=== PATIENT | male | born 1980 | race Two or more races ===

== ENCOUNTER 2024-09-09 10:59 | Inpatient (IN) | payer OTHER ==
[~2024-09-09] VITALS: Ht 175.3 cm; Wt 85.9 kg
[2024-09-09 15:54] VITALS: PULSE 42; RESP 17; O2SAT 100
[2024-09-09 16:11] VITALS: BP 131/71; PULSE 42; RESP 16; TEMP 97.8; O2SAT 100
--- NOTE | 2024-09-09 16:48 | DVHSR ---
APPROVED REPORT EXAM: Two-dimensional and M-mode echocardiogram with Doppler and color Doppler. DIMENSIONS LVDd5.5 (3.8-5.7cm)LA (2D)3.8 (1.9-4.0cm)Aortic Root3.3 (2.0-3.7cm) LVDs3.7 (2.5-4.0cm)LA (MM) (1.9-4.0cm)Aortic Cusp Exc1.8 (1.5-2.0cm) EF (%) 60.0 (55-70%)Rt. Atrium4.5 (1.9-4.0cm)Asc. Aorta3.0 cm IVSd1.0 (0.7-1.1cm)RV (D) (1.8-2.4cm) PWd1.1 (0.7-1.1cm) Mitral Valve MitralMitral Stenosis E wave0.80m/sMV Mean GR.mmHg A wave0.60m/sMV Peak GR.mmHg E/A ratio1.32D MVAcm2 Aortic Valve Aortic ValveAortic Stenosis V11.10m/Nika Mean GR.3mmHg V21.20m/Nika Peak GR.6mmHg LVOT Diameter2.2 (1.8-2.4cm)Doppler AVA3.48cm2 Pulmonic Valve V20.50m/s Tricuspid Valve TR Velocity2.30m/s [id number] Conclusion Technically good study. Sinus rhythm. Mild left atrial enlargement. Aortic root enlargement. LV enlargement. Valves appear to be structurally normal. Left ventricular function is mildly diminished EF is about 40-45%. Underlying global hypokinesis. N ormal RV function. Doppler reveals moderate pulmonic insufficiency. [id number] tricuspid regurgitation. No pericardial effusion masses or vegetations discernible.
[2024-09-09 17:00] VITALS: BP 131/71; PULSE 42; RESP 14; TEMP 97.8; O2SAT 100
[2024-09-09] MEDS ORDERED: MORPHINE SULFATE INJ 2 MG/ml SYRG IV PRN (17:00)
[2024-09-09] MEDS ORDERED: NITROGLYCERIN 0.4 MG SL TAB SL PRN (17:00)
[2024-09-09 18:36] LABS: Basophils # (auto) 0 10 ^3/uL (0-0.2); Basophils % (auto) 0.7 % (0.0-2.0); Eosinophils # (auto) 0.1 10 ^3/uL (0-0.8); Eosinophils % (auto) 2.3 % (0.0-7.0); Hematocrit 45.2 % (41.0-53.0); Hemoglobin 15.1 g/dL (13.5-17.5); Lymphocytes % (auto) 33.1 % (10.0-50.0); Mean Corpuscular Hemoglobin 28.7 pg (28.0-32.0); Mean Corpuscular Hgb Conc. 33.4 g/dL (32.0-36.0); Mean Corpuscular Volume 85.8 fL (80.0-100.0); Monocytes # (auto) 0.6 10 ^3/uL (0-1.3); Monocytes % (auto) 10.5 % (0.0-12.0); Neutrophils # (auto) 3.3 10 ^3/uL (1.6-8.6); Neutrophils % (auto) 53.4 % (37.0-80.0); Nucleated Red Blood Cells % 0.1 %; Platelet Count (auto) 246 10^3/uL (140-450); Red Blood Cells 5.27 10^6/uL (4.5-5.90); Red Cell Distribution Width 14.4 % (11.8-14.3); White Blood Cell 6.1 10^3/uL (4.4-10.8)
[2024-09-09 18:48] LABS: Alanine Aminotransferase 34 U/L (7-40); Albumin 4.8 g/dL (3.2-4.8); Alkaline Phosphatase 68 U/L (46-116); Anion Gap 8 (5-15); Aspartate Aminotransferase 21 U/L (13-40); BUN/Creatinine Ratio 8.6 (10.0-20.0); Bilirubin, Total 0.6 mg/dL (0.2-1.0); Blood Urea Nitrogen 12 mg/dL (9-23); Calcium 10.3 mg/dL (8.7-10.4); Carbon Dioxide 30 mmol/L (20-31); Chloride 105 mmol/L (98-107); Glucose 92 mg/dL (74-106); Potassium 4.1 mmol/L (3.5-5.1); Sodium 143 mmol/L (136-145); Total Protein 7.7 g/dL (5.7-8.2)
--- NOTE | 2024-09-09 19:30 | DVH ---
CHEST RADIOGRAPH Indication: chest pain Technique: Single frontal view of the chest was obtained COMPARISON: None FINDINGS: Lines and Tubes: None Lungs: Clear Pleura: No effusion. No pneumothorax. Cardiomediastinal contours: Unremarkable Bones: Unremarkable IMPRESSION: No abnormality demonstrated.
--- NOTE | 2024-09-09 19:41 | DVHINCON2 ---
Date Seen: September 09, 2024 Referring Physician MD Adis Reason for Consultation Chest pain History of Present Illness This is a 43-year-old male patient who presents to the outpatient cardiac clinic for uncontrolled hypertension. The patient was evaluated by seafood farmer and subsequently admitted to this facility for further cardiac workup. Patient is currently incarcerated. The patient reports that he has been experiencing headaches with numbness in his bilateral arms and shoulders. He reports taking amlodipine, but blood pressures are still not well controlled. Initial twelve lead electrocardiogram done at time of assessment and reveals sinus bradycardia with left ventricular hypertrophy and nonspecific ST segment changes to inferior leads. He denies any chest pain, palpitations, or shortness of breath. Initial troponin level of 19ng/L. Significant past medical history includes hypertension and tobacco use. The patient reports a positive family history of coronary artery disease. Past Medical History Past medical history reviewed. No other significant than mentioned above. Past Surgical History Denies all previous surgeries Family History: FH: lupus G8 MOTHER Family History Family history reviewed. Social History Patient has a 30 pack-year history, smokes half a pack per day Denies any illicit drug use Denies any alcohol use Allergies: Coded Allergies: NO KNOWN ALLERGIES (Unverified , 09/09/24) Home Meds Home medications reviewed. Current Medications Current Medications Medications (Trade) Dose Ordered Sig/Agueda Route PRN Reason Start Time Stop Time Status Last Admin Nitroglycerin (Ntrostat Sublingual) 0.4 mg Q5MINP PRN SL FOR CHEST PAIN 09/09/24 17:00 Morphine Sulfate 2 mg Q30M PRN IV FOR CHEST PAIN 09/09/24 17:00 Review of Systems Constitutional: No symptom reported Ears, Nose, & Throat: No symptom reported Eyes: No symptom reported Neurological: Headache Pulmonary/Respiratory: No symptoms reported Cardiovascular: No symptom reported Gastrointestinal: No symptom reported Genitourinary: No symptom reported Musculoskeletal: No symptom reported Skin: No symptom reported Psychiatric: No symptom reported Endocrine: No symptom reported Hematologic/Lymphatic: No symptom reported Vital Signs Vital Signs Date Time Temp Pulse Resp B/P (MAP) Pulse Ox O2 Delivery O2 Flow Rate FiO2 09/09/24 17:00 97.8 42 14 131/71 (91) 100 97.8 09/09/24 15:54 Room Air* 0 21 Physical Exam General Appearance: Cooperative. Well-developed. Well-nourished. No acute distress. Pulmonary/Respiratory: Clear, bilateral breaths sounds. Cardiovascular/Chest: Regular rate and rhythm. Peripheral Pulses: 2+ Radial (R). 2+ Radial (L). 2+ Pedal (R). 2+ Pedal (L) Abdominal Exam: Normal bowel sounds. Ankle Exam: Negative ankle edema Lower extremities: Negative lower extremity edema Neuro/Mental Status: A/OX4, coherent. Thoughts/Psych: Normal thought pattern. Appropriate mood and affect. Good judgment and insight. Appearance: No acute distress. Skin Exam: Normal inspection. Normal color. Warm and dry. Labs/Diagnostic Data Labs Test 09/09/24 18:15 Range/Units White Blood Count 6.1 4.4-10.8 10^3/uL Red Blood Count 5.27 4.5-5.90 10^6/uL Hemoglobin 15.1 13.5-17.5 g/dL Hematocrit 45.2 41.0-53.0 % Mean Corpuscular Volume 85.8 80.0-100.0 fL Mean Corpuscular Hemoglobin 28.7 28.0-32.0 pg Mean Corpuscular Hemoglobin Concent 33.4 32.0-36.0 g/dL Red Cell Distribution Width 14.4 H 11.8-14.3 % Platelet Count 246 140-450 10^3/uL Mean Platelet Volume 7.9 6.9-10.8 fL Neutrophils (%) (Auto) 53.4 37.0-80.0 % Lymphocytes (%) (Auto) 33.1 10.0-50.0 % Monocytes (%) (Auto) 10.5 0.0-12.0 % Eosinophils (%) (Auto) 2.3 0.0-7.0 % Basophils (%) (Auto) 0.7 0.0-2.0 % Neutrophils # (Auto) 3.3 1.6-8.6 10 ^3/uL Lymphocytes # (Auto) 2.0 0.4-5.4 10 ^3/uL Monocytes # (Auto) 0.6 0-1.3 10 ^3/uL Eosinophils # (Auto) 0.1 0-0.8 10 ^3/uL Basophils # (Auto) 0 0-0.2 10 ^3/uL Nucleated Red Blood Cells 0.1 % Sodium Level 143 136-145 mmol/L Potassium Level 4.1 3.5-5.1 mmol/L Chloride Level 105 98-107 mmol/L Carbon Dioxide Level 30 20-31 mmol/L Anion Gap 8 5-15 Blood Urea Nitrogen 12 9-23 mg/dL Creatinine 1.39 H 0.700-1.30 mg/dL Glomerular Filtration Rate Calc 65 >90 mL/min BUN/Creatinine Ratio 8.6 L 10.0-20.0 Serum Glucose 92 74-106 mg/dL Calcium Level 10.3 8.7-10.4 mg/dL Total Bilirubin 0.6 0.2-1.0 mg/dL Aspartate Amino Transferase (AST) 21 13-40 U/L Alanine Aminotransferase (ALT) 34 7-40 U/L Alkaline Phosphatase 68 46-116 U/L Troponin I High Sensitivity 19 </=54 ng/L Total Protein 7.7 5.7-8.2 g/dL Albumin 4.8 3.2-4.8 g/dL Assessment Rule out coronary ischemia Uncontrolled hypertension Rule out structural heart disease Tobacco use Plan/Recommendation We will continue with the following plan/recommendations (Dr. Burr): Case discussed with . We will proceed with obtaining a transthoracic echocardiogram to evaluate cardiac function. Given the patient's clinical presentation, comorbidities, and twelve lead electrocardiogram, we will offer the patient a nuclear stress test. Plan discussed with the patient full detail. Patient agreeable. We will schedule the patient at soonest availability on 09/10/2024. In the meantime, continue with blood pressure control, and single antiplatelet therapy. Close Cardiac monitoring and notify cardiology team for any ECG changes. Thank you for allowing us to care for this patient. Please call with any questions or concerns. Critical care time spent: 43 minutes This medical document was created using an electronic medical record system with voice recognition software and computerized dictation system. Although this document has been carefully reviewed, there might still be some phonetic and typographical errors. Occasional wrong-word or ``sound-alike�� substitutions may have occurred due to the inherent limitations of voice recognition software. These areas are purely typographical due to imperfections of the software programs and do not reflect any compromise in the patient's medical care. Please read the chart carefully and recognize, using context, where these substitutions have occurred. Plan discussed with: Patient NYHA Physical activity limitations: NA Date of Service: September 09, 2024 Billing Provider: ALIRIO POWELL Cardiology Common Codes: 12022-USPGVCF INP/OBS CARE (High) Cardiology Consultation Codes: 33314-[id number] CONSULT <45MIN ALIRIO POWELL September 09, 2024 19:41
[2024-09-09 20:00] VITALS: PULSE 47; PULSE 50; RESP 18; O2SAT 98
[2024-09-09] MEDS ORDERED: HYDROcodone-ACET 10/325MG TAB PO PRN (20:15)
[2024-09-09 20:19] LABS: Magnesium 2.2 mg/dL (1.6-2.6)
[2024-09-09 21:00] VITALS: BP 121/73; PULSE 47; RESP 18; TEMP 98.3; O2SAT 98
--- NOTE | 2024-09-09 21:31 | DVHHP ---
ADMIT DATE: 09/09/2024 ADMITTING HISTORY AND PHYSICAL ATTENDING PHYSICIAN: Dr. Tim Arceo. CHIEF COMPLAINT: Bradycardia. HISTORY OF PRESENT ILLNESS: This is a 43-year-old male, [facility] inmate, who was seen in Cardiac Clinic today, referred by the BO for uncontrolled hypertension, but he was found to be bradycardic with a heart rate in the 40s. The patient states he has hypertension and takes amlodipine 5 mg per day. He adamantly denies any symptoms of lightheadedness, blurring of vision, chest pain, cough, shortness of breath, nor any recent fevers. Due to the nature of symptoms, the patient is being admitted for further workup. PAST MEDICAL HISTORY: Hypertension. PAST SURGICAL HISTORY: Denies. FAMILY HISTORY: Mother had lupus. SOCIAL HISTORY: He has had 30-pack years of smoking. The patient states he started when he was approximately [age] years old. Had occasional to moderate use of alcohol. He smoked marijuana on a regular basis. He is single. He has 5 children. Normally resides in [place]. He has been incarcerated for 4 years and has approximately 2 years left on his sentence. The patient states he works out regularly. He does cardio a couple of days a week and he plays basketball quite regularly, almost daily without any known untoward events. REVIEW OF SYSTEMS: HEENT: He denies any lightheadedness, loss of consciousness, blurring of vision. Cardiovascular: As per HPI. Respiratory: Denies cough, shortness of breath, or hemoptysis. GI: Denies nausea, vomiting, diarrhea, or constipation. : Noncontributory. Neuro: Denies any focal deficits. PHYSICAL EXAMINATION: VITAL SIGNS: He presents with a temperature of 97, blood pressure of 131/71, heart rate of 42, respiratory rate of 16, O2 saturation 100% on room air. HEENT: Normocephalic, anterior sclerae, pink conjunctiva. EOMI. NECK: Supple. No JVD, mass, or bruit. CHEST: Good equal excursion bilateral, nontender. HEART: S1, S2 regular. No click, murmur, or gallop. LUNGS: Good equal air exchange bilateral, clear to auscultation. ABDOMEN: Soft, benign. NEURO: He is awake, alert, and oriented x4. He is without any focal deficits. LABORATORY DATA: We have WBC of 6.1, hemoglobin 15.1, platelets 246. Chemistries are pending. Chest x-ray, no abnormality. Then, we have EKG, which shows sinus bradycardia at approximately 40 beats per minute. No obvious acute ST-T changes. ASSESSMENT: * Bradycardia. * Hypertension. PLAN: Admit to tele. Condition is stable. Regular diet. IV heplock. We will also do Lovenox for DVT prophylaxis. MD ALAN Rosales/AUTUMN TID: [id number] RECEIPT: [id number]
[2024-09-10] VITALS (7 sets, daily range): BP systolic 100–111; BP diastolic 57–74; PULSE 43–58; RESP 15–20; TEMP 97.4–98; O2SAT 96–98
[2024-09-10] MEDS: REGADENOSON 0.4 MG/5 ML SYRG IV ONE (08:00)
[2024-09-10] MEDS ORDERED: NIFEdipine ER 30 MG TAB PO SCH (10:00)
--- NOTE | 2024-09-10 10:42 | DVHPN2 ---
Consult Progress Note Date Seen: September 10, 2024 Subjective Review of Systems: CVS:Normal, RESPIRATORY:Normal, NEURO:Normal Objective vital signs Vital Sign Date Time Temp Pulse Resp B/P (MAP) Pulse Ox O2 Delivery O2 Flow Rate FiO2 09/10/24 09:01 97.9 47 20 107/63 (78) 97 97.9 09/10/24 08:00 Room Air* 0 21 Total Intake and Output 09/09/24 09/09/24 09/10/24 15:00 23:00 07:00 Intake Total 0 ml 0 ml Balance 0 ml 0 ml medications Current Medications Medications Dose Ordered Sig/Agueda Route Start Time Stop Time Status Last Admin Dose Admin Nitroglycerin 0.4 mg Q5MINP PRN SL 09/09/24 17:00 Aspirin 81 mg DAILY PO 09/10/24 10:00 Acetaminophen/ Hydrocodone Bitart 1 tab Q4HP PRN PO 09/09/24 20:15 Examination: LUNGS:Normal, CVS:Normal, NEURO:Normal laboratory and microbiology Laboratory Tests 09/09/24 18:15 Test 09/09/24 18:15 Range/Units Serum Glucose 92 74-106 mg/dL Problem List/Assessment/Plan Problem List/Assessment/Plan Hypertension Chronic compensated HFmrEF with LVEF at 40-45% Asymptomatic bradycardia Pre-diabetes Dyslipidemia Tobacco use Plan/Recommendation (Dr. Burr) Case discussed with . Transthoracic echocardiogram revealed LVEF 40-45% with underlying global hypokinesis. Nuclear stress test postponed for 09/12/2024 (nuclear medicine machine down). Plan discussed with the patient full detail. Patient agreeable. In the meantime, continue single-antiplatelet therapy and initiate GDMT for HFmrEF, hold BB given bradycardia. Close Cardiac monitoring and notify cardiology team for any ECG changes. Thank you for allowing us to care for this patient. Please call with any questions or concerns. This medical document was created using an electronic medical record system with voice recognition software and computerized dictation system. Although this document has been carefully reviewed, there might still be some phonetic and typographical errors. Occasional wrong-word or ``sound-alike�� substitutions may have occurred due to the inherent limitations of voice recognition software. These areas are purely typographical due to imperfections of the software programs and do not reflect any compromise in the patient's medical care. Please read the chart carefully and recognize, using context, where these substitutions have occurred. Plan discussed with: Patient, Other Date of Service: September 10, 2024 Billing Provider: GEM SILVA Cardiology Common Codes: 12283-[id number] INP/OBS CARE(Mod) GEM SILVA September 10, 2024 10:42
[2024-09-10] MEDS: ASPirin 81 mg TAB PO SCH (10:45)
--- NOTE | 2024-09-10 13:51 | ECG ---
[facility] Test Date: 2024-09-09 Test Time: 16:35:29 Pat Name: ALMAZ GUZMAN Department: Room: 0298T B Gender: M [employer] Machine: kaya : [id number] Requested By: LISA LEDESMA Order Number: [id number] Reading MD: Zechariah Burr Measurements Intervals [place] Rate: 42 P: -3 AR: 186 QRS: -34 QRSD: 108 T: -2 QT: 458 QTc: 383 Interpretive Statements Sinus bradycardia Abnormal R-wave progression, late transition Left ventricular hypertrophy Borderline T abnormalities, inferior leads Electronically Signed On 09-10-2024 15:31:49 PDT by Zechariah Burr Please click the below link to view image of tracing.
--- NOTE | 2024-09-10 16:16 | DVHPN ---
DATE: 09/10/2024 ATTENDING PHYSICIAN: Dr. Tim Arceo SUBJECTIVE: The patient is sitting up in bed. He is eating a sandwich. He is watching TV. He is comfortable. He is in no active distress. He denies any complaints. Specifically, he denies any lightheadedness, blurring of vision, chest pain, cough, shortness of breath, or fever. No untoward events have been noted. OBJECTIVE: VITAL SIGNS: Temperature is 97.9 with a blood pressure of 107/63, heart rate of 47, respiratory rate of 20, O2 saturation 97% on room air. HEART: S1, S2 regular. No click, murmur, or gallop. LUNGS: Good equal air exchange bilateral. Clear to auscultation. ABDOMEN: Soft, nondistended, nontender. Bowel sounds positive. No mass, guarding, or rebound. NEUROLOGIC: He is awake, alert, and oriented x4 without focal deficits. LABORATORY DATA: Troponin negative x2. TSH is 1.3. ASSESSMENT: * Bradycardia. * Hypertension. PLAN: We will continue with aspirin for cardio protection. Continue with [place] for pain, Jardiance for diabetes. The patient is scheduled for stress test. MD ALAN Rosales/CLIVE TID: [id number] RECEIPT: [id number]
[2024-09-11] VITALS (8 sets, daily range): BP systolic 101–119; BP diastolic 54–67; PULSE 50–74; RESP 14–18; TEMP 97.6–98.3; O2SAT 96–97
[2024-09-11] MEDS: VALSARTAN 80 MG TAB PO SCH (09:10)
[2024-09-11] MEDS: SPIRONOLACTONE 25 MG TAB PO SCH (09:12)
[2024-09-11] MEDS: EMPAGLIFLOZIN 10 MG TAB PO SCH (09:12)
--- NOTE | 2024-09-11 19:04 | DVHPN ---
DATE: 09/11/2024 ATTENDING PHYSICIAN: Dr. Tim Arceo SUBJECTIVE: The patient is lying down in bed. He is watching TV. He is comfortable. He is in no active distress. He is in good spirits. He informs me that he did ambulate yesterday and earlier today without any untoward events. He has no complaints at this time. Specifically, he denies any chest pain, coughing, shortness of breath, fever. No untoward events have been documented. OBJECTIVE: VITAL SIGNS: Temperature is 97.6 with the blood pressure of 111/67, heart rate is 61, respiratory rate is 18, O2 saturation is 97% on room air. HEART: S1, S2 regular. No click, murmur, or gallop. LUNGS: Good equal air exchange bilateral. Clear to auscultation. ABDOMEN: Soft, nondistended, nontender. Bowel sounds are positive. No mass, scarring, or rebound. NEUROLOGIC: He is awake, alert, and oriented x4 without focal deficits. ASSESSMENT: * Bradycardia. * Hypertension. PLAN: We will continue with the Jardiance for diabetes, aspirin for the cardio protection, [place] for pain, spironolactone, and valsartan for the hypertension. Again, I encouraged the patient to ambulate as frequently as possible. MD ALAN Rosales/RUTH TID: [id number] RECEIPT: [id number]
[2024-09-12] VITALS (8 sets, daily range): BP systolic 105–121; BP diastolic 62–79; PULSE 50–82; RESP 16–20; TEMP 97.1–98.1; O2SAT 96–99
--- NOTE | 2024-09-12 21:22 | DVHPN ---
DATE: 09/12/2024 ATTENDING PHYSICIAN: Dr. Tim Arceo SUBJECTIVE: The patient is sitting up in bed. He is watching TV. He is smiling. He is in good spirits. He is comfortable. He is in no active distress. He denies any complaints. Specifically, he denies lightheadedness, headache, blurring of vision, near syncope, and chest pain. No untoward events have been documented. Monitor sinus rhythm with no evidence of any pauses or intermittent bradycardia. OBJECTIVE: VITAL SIGNS: Temperature is 98.1 with blood pressure is 111/66, heart rate is 51, respiratory rate is 17, O2 saturation is 97% on room air. HEART: S1, S2, regular. LUNGS: Good equal exchange bilaterally. Clear to auscultation. ABDOMEN: Soft, benign. NEUROLOGIC: Without focal deficits. ASSESSMENT: * Bradycardia. * Hypertension. * Diabetes. PLAN: We will continue with the Jardiance for diabetes as well as cardio protection. Continue with aspirin for cardio protection, spironolactone and valsartan for hypertension, and [place] for pain. I have encouraged the patient to ambulate as much as possible. MD ALAN Rosales/GEETA TID: [id number] RECEIPT: [id number]
[2024-09-13] VITALS (8 sets, daily range): BP systolic 98–130; BP diastolic 56–74; PULSE 46–70; RESP 16–20; TEMP 97.7–98.5; O2SAT 96–100
[2024-09-13] MEDS: REGADENOSON 0.4 MG/5 ML SYRG IV ONE ×2 (09:52)
--- NOTE | 2024-09-13 19:06 | DVHPN ---
DATE: 09/13/2024 ATTENDING PHYSICIAN: Dr. Tim Arceo SUBJECTIVE: The patient is sitting up in bed. He is in good spirits. He is comfortable. He is in no active distress. He is watching TV, waiting for his dinner tray. Again, he denies any complaints. Specifically, he denies any lightheadedness, blurring of vision, chest pain, shortness of breath, or loss of consciousness. He states he is doing just fine. OBJECTIVE: VITAL SIGNS: Temperature is 97.9, blood pressure 130/59, heart rate of 65, respiratory rate of 18, O2 saturation 98% on room air. HEART: S1, S2, regular. No click, murmur, or gallop. LUNGS: Good equal exchange bilaterally. Clear to auscultation. ABDOMEN: Soft, nondistended, nontender. Bowel sounds positive. No mass, guarding, or rebound. NEUROLOGIC: Awake, alert, and oriented x4 without focal deficits. Cardiolite stress test performed. Results are pending. ASSESSMENT: * Bradycardia. * Hypertension. * Diabetes. PLAN: According to child monitor, though patient ranges from 40s to 80s, he has not had any sustained pauses. We will continue with the aspirin for cardio protection, Jardiance for diabetes, spironolactone and valsartan for hypertension, [place] for pain, and Lovenox for DVT prophylaxis. MD ALAN Rosales/VERONICA TID: [id number] RECEIPT: [id number]
[2024-09-14] VITALS (8 sets, daily range): BP systolic 105–116; BP diastolic 61–76; PULSE 49–77; RESP 16–19; TEMP 97.6–98.5; O2SAT 97–99
--- NOTE | 2024-09-14 07:43 | DVHSR ---
APPROVED REPORT Exam: Nuclear Stress Test Indication: Chest pain Stress Tech: Trinidad Temple Ht: 5 ft 9 in Wt: 189 lbs BSA: 2.02 m2 BMI: 27.90 Medical History Medical History: HTN, Smoking, PRE DIABETIC, EF 40-45% Allergies: No known drug allergies Stress Test Details Stress Test: Pharmacologic stress testing performed using 0.4 mg of regadenoson per 5 mL given IV ov er 10 seconds. Reason for pharmacologic stress test: CHEST PAIN. HR Resting HR: 62 bpmMax Heart Rate (APMHR): 179.645239 bpm Max HR Achieved: 106 bpmTarget HR (85% APMHR): 152.874886 bpm % of APMHR: 59.22 Recovery HR: 83 bpm BP Resting BP: 126/74 mmHg Recovery BP: 141/78 mmHg ECG Resting ECG: Sinus Rhythm Clinical Reason for Termination: Completed protocol Nurse Comments Received patient from Nuclear Medicine. Patient is A&O x4 and on RA. FOR VS please refer back to st ress test assessment documentation. Patient is connected to night monitor. See cardio-neuro proce dural notes for addtional details. PIV flushes well. Reviewed POC and patient verbalizes understand ing and consents to test. Lexiscan stress test performed per protocol. emergency medical technician/driver administered the Cardiolite. Pat ient tolerated well and vitals returned to baseline. Transferred to Nuclear Medicine via wheelchair with tech in stable condition. Stress ECG Conclusion lvef 49% ecg shows SR, septal infarct imaging: very poor quality on stress imaging, there is decreased perfusion throughout he stress porti on, this can be seen with anterior wall ischemia consider alternative imaging or diagnostic cath for better assessment NM EXAM: Myocardial Perfusion REST/STRESS Imaging Protocol: Rest Tc-99m/Stress Tc-99m 1 day Resting Data Rest SPECT myocardial perfusion imaging was performed in supine position 45 minutes following the int ravenous injection of 10.0 mCi of Tc-99m Sestamibi. Time of rest injection: 09:00 Date: 09/13/2024 Time of rest imagin:45 Date: 09/13/2024 The images were gated to evaluate regional wall motion and calculate left ventricular ejection fracti on. Administration Route: IV Administration Site: Left Hand Pharmacologic Stress Pharmacologic stress test was performed by injecting Regadenoson 0.4 mg IV push followed by the intra venous injection of 32.0 mCi of Tc-99m Sestamibi. Time of stress injection: 09:55 Date: 09/13/2024 Time of stress imagin:55 Date: 09/13/2024 Administration Route: IV Administration Site: Left Hand Gated Stress SPECT was performed 60 minutes after stress injection. The images were gated to evaluate regional wall motion and calculate left ventricular ejection fracti on. Stress only was performed in the Supine position. Nuclear Conclusion lvef 49% ecg shows SR, septal infarct imaging: very poor quality on stress imaging, there is decreased perfusion throughout he stress porti on, this can be seen with anterior wall ischemia consider alternative imaging or diagnostic cath for better assessment
--- NOTE | 2024-09-14 08:56 | DVHPN2 ---
Consult Progress Note Date Seen: September 14, 2024 Subjective Review of Systems: CVS:Normal, RESPIRATORY:Normal, NEURO:Normal Objective vital signs Vital Sign Date Time Temp Pulse Resp B/P (MAP) Pulse Ox O2 Delivery O2 Flow Rate FiO2 09/14/24 07:44 Room Air* 0 21 09/14/24 05:00 98.2 53 17 110/76 (87) 98 98.2 Total Intake and Output 09/13/24 09/13/24 09/14/24 14:59 22:59 06:59 Intake Total 550 ml 300 ml Output Total 375 ml 800 ml Balance -375 ml 550 ml -500 ml medications Current Medications Medications Dose Ordered Sig/Agueda Route Start Time Stop Time Status Last Admin Dose Admin Nitroglycerin 0.4 mg Q5MINP PRN SL 09/09/24 17:00 Aspirin 81 mg DAILY PO 09/10/24 10:00 09/13/24 11:27 81 MG Acetaminophen/ Hydrocodone Bitart 1 tab Q4HP PRN PO 09/09/24 20:15 Empaglifozin 10 mg DAILY PO 09/11/24 10:00 09/13/24 11:27 10 MG Spironolactone 12.5 mg DAILY PO 09/11/24 10:00 09/13/24 11:28 12.5 MG Valsartan 40 mg DAILY PO 09/11/24 10:00 09/13/24 11:28 40 MG Examination: LUNGS:Normal, CVS:Normal, NEURO:Normal laboratory and microbiology Laboratory Tests 09/09/24 18:15 Test 09/09/24 18:15 Range/Units Serum Glucose 92 74-106 mg/dL Problem List/Assessment/Plan Problem List/Assessment/Plan Hypertension Chronic compensated HFmrEF with LVEF at 40-45% Asymptomatic bradycardia Pre-diabetes Dyslipidemia Tobacco use Plan/Recommendation (Dr. Burr) Case discussed with . Transthoracic echocardiogram revealed LVEF 40-45% with underlying global hypokinesis. Nuclear stress revealed decreased perfusion throughout the anterior wall for which patient has been scheduled for a coronary angiogram with cardiac catheterization. Alls risks and benefits of the procedure were discussed in detail including the risk of ADALGISA, CVA, disecction and even . The patient agreed to proceed with intervention. All questions answered. In the meantime, continue single-antiplatelet therapy and initiate GDMT for HFmrEF, hold BB given bradycardia. Close Cardiac monitoring and notify cardiology team for any ECG changes. Thank you for allowing us to care for this patient. Please call with any questions or concerns. This medical document was created using an electronic medical record system with voice recognition software and computerized dictation system. Although this document has been carefully reviewed, there might still be some phonetic and typographical errors. Occasional wrong-word or ``sound-alike�� substitutions may have occurred due to the inherent limitations of voice recognition software. These areas are purely typographical due to imperfections of the software programs and do not reflect any compromise in the patient's medical care. Please read the chart carefully and recognize, using context, where these substitutions have occurred. Plan discussed with: Patient, Other Date of Service: September 14, 2024 Billing Provider: GEM SILVA Cardiology Common Codes: 55270-KZLIZNCDGT HOSP CARE(High GEM SILVA September 14, 2024 08:56
--- NOTE | 2024-09-14 20:02 | DVHPN ---
DATE: 09/14/2024 ATTENDING PHYSICIAN: Dr. Tim Arceo SUBJECTIVE: The patient is just transferred to a new room and just transferred into a new bed. He is in good spirits. He is in no active distress. He denies any complaints specifically of any chest pain. No lightheadedness. No untoward events noted. Transesophageal echocardiogram revealed ejection fraction of 40 to 45 with global hypokinesis. The patient underwent stress test, which shows possible ischemia of the anterior wall. He has been recommended for coronary angiography per Cardiology consult. The patient is aware. OBJECTIVE: VITAL SIGNS: Temperature is 98.4 with a blood pressure of 110/68, heart rate is 62, respiratory rate of 18, and O2 saturation is 99% on room air. HEART: S1, S2 regular. LUNGS: Clear to auscultation. ABDOMEN: Soft, benign. NEUROLOGIC: He is awake, alert, and oriented x4 without focal deficits. ASSESSMENT: * Bradycardia. * Hypertension. * Diabetes. * Abnormal echo and no Cardiolite stress test. PLAN: We will continue with the performance of the coronary angiogram. We will continue with the Jardiance for diabetes, aspirin for cardiac protection, Lovenox for deep vein thrombosis prophylaxis, valsartan and spironolactone for hypertension, and [place] for pain. MD ALAN Rosales/VERONICA TID: [id number] RECEIPT: [id number]
[2024-09-14] MEDS: ATORVASTATIN 20 MG TAB PO SCH (22:28)
[2024-09-15] VITALS (8 sets, daily range): BP systolic 94–111; BP diastolic 57–72; PULSE 48–67; RESP 18–19; TEMP 97.2–98.6; O2SAT 96–99
[2024-09-15 05:55] LABS: Basophils # (auto) 0.1 10 ^3/uL (0-0.2); Basophils % (auto) 0.8 % (0.0-2.0); Eosinophils # (auto) 0.2 10 ^3/uL (0-0.8); Eosinophils % (auto) 2.3 % (0.0-7.0); Hemoglobin 16.1 g/dL (13.5-17.5); Lymphocytes # (auto) 2.1 10 ^3/uL (0.4-5.4); Lymphocytes % (auto) 27.8 % (10.0-50.0); Mean Corpuscular Hgb Conc. 34.9 g/dL (32.0-36.0); Mean Corpuscular Volume 85.8 fL (80.0-100.0); Monocytes # (auto) 0.8 10 ^3/uL (0-1.3); Monocytes % (auto) 11.2 % (0.0-12.0); Neutrophils # (auto) 4.4 10 ^3/uL (1.6-8.6); Neutrophils % (auto) 57.9 % (37.0-80.0); Nucleated Red Blood Cells % 0.2 %; Platelet Count (auto) 257 10^3/uL (140-450); Red Blood Cells 5.36 10^6/uL (4.5-5.90); Red Cell Distribution Width 14.1 % (11.8-14.3); White Blood Cell 7.6 10^3/uL (4.4-10.8)
[2024-09-15 06:17] LABS: Calcium 9.8 mg/dL (8.7-10.4); Chloride 106 mmol/L (98-107); Potassium 4.3 mmol/L (3.5-5.1); Sodium 140 mmol/L (136-145)
[2024-09-15 06:18] LABS: Anion Gap 7 (5-15); Carbon Dioxide 27 mmol/L (20-31)
[2024-09-15 06:23] LABS: BUN/Creatinine Ratio 13.4 (10.0-20.0); Blood Urea Nitrogen 20 mg/dL (9-23); Glucose 96 mg/dL (74-106)
[2024-09-15 06:34] LABS: INR 1.08 (0.9-1.15); Partial Thromboplastin Time 33.3 SEC (24.5-34.5); Prothrombin Time 11.4 sec (9.3-11.8)
[2024-09-15 08:11] LABS: Urine Bacteria None Seen /hpf (None Seen)
[2024-09-15 08:38] LABS: Urine Blood Negative /uL (Negative); Urine Clarity Clear (Clear); Urine Color Light-Yellow (Yellow); Urine Protein, UAD Negative (Negative); Urine Specific Gravity 1.027 (1.001-1.035); Urine Squamous Epithelial Cell None Seen /hpf (<5); Urine Urobilinogen Normal (Negative); Urine WBC 1 /HPF (0-3); Urine pH 5.5 (5.0-9.0)
--- NOTE | 2024-09-15 20:34 | DVHPN ---
DATE: 09/15/2024 ATTENDING PHYSICIAN: Dr. Tim Arceo. SUBJECTIVE: The patient is lying in bed. He is comfortable. He is in no active distress, though he expresses a bit of anxiety about all the tests that he is having done and the fear of what is yet to come. I reassured the patient that if anything bad were to come of any of these tests that he would be the first I would let know. But thus far, other than having a slow heart rate, which he has probably had for many years, things have come out okay, except the findings on the stress test showed there is possible decreased blood flow to an area of the heart. OBJECTIVE: VITAL SIGNS: His temperature is 98 with a blood pressure of 104/57, heart rate of 48, respiratory rate 18, O2 sat is 96% on room air. HEART: S1, S2, regular. No click, murmur or gallop. LUNGS: Good equal air exchange bilateral with some slight crackle, left base. ABDOMEN: Soft, benign. NEUROLOGIC: Awake, alert, and oriented x 4 without focal deficits. LABORATORY DATA: WBC 7.6, hemoglobin 16.1, platelets 257. Sodium 140, potassium 4.3, BUN 20, creatinine 1.49, a GFR of 60, and a glucose of 96. PT 11.4, PTT 33.3. UA is 4+ glucose. ASSESSMENT: * Bradycardia. * Hypertension. * Diabetes. * Abnormal echo and Cardiolite stress test. PLAN: We will await to perform his coronary angiography today, for which he is currently n.p.o., after which we will restart Jardiance for diabetes, aspirin for cardio protection, valsartan and spironolactone for hypertension and [place] for pain. Tim Arceo MD JV/HEM TID: [id number] RECEIPT: [id number]
[2024-09-16] VITALS (11 sets, daily range): BP systolic 94–110; BP diastolic 42–67; PULSE 50–73; RESP 15–18; TEMP 97.8–98.4; O2SAT 94–97
[2024-09-16 05:47] LABS: Alanine Aminotransferase 17 U/L (7-40); Albumin 4.7 g/dL (3.2-4.8); Alkaline Phosphatase 72 U/L (46-116); Anion Gap 10 (5-15); Aspartate Aminotransferase 13 U/L (13-40); BUN/Creatinine Ratio 16.2 (10.0-20.0); Bilirubin, Total 0.6 mg/dL (0.2-1.0); Calcium 10.1 mg/dL (8.7-10.4); Carbon Dioxide 26 mmol/L (20-31); Chloride 103 mmol/L (98-107); Glucose 98 mg/dL (74-106); Potassium 4.1 mmol/L (3.5-5.1); Sodium 139 mmol/L (136-145); Total Protein 7.5 g/dL (5.7-8.2)
[2024-09-16 05:51] LABS: Blood Urea Nitrogen 25 mg/dL (9-23)
[2024-09-16] MEDS: IODIXANOL 320MG/ML 100ML BTL IV ONE (15:15)
[2024-09-16] MEDS: ANGIOMAX 250 MG VIAL IV ONE (15:27)
[2024-09-16] MEDS: fentaNYL CITRATE 100 MCG/2 ML VL ONE (15:27)
[2024-09-16] MEDS: VERAPAMIL 2.5MG/ML INJ 2ML VIAL IV ONE (15:27)
[2024-09-16] MEDS: LIDOCAINE 2%HCL (LOCAL ANESTH.) INJ 20ML MDV ONE (15:28)
[2024-09-16] MEDS: MIDAZOLAM HCL 2MG/2ML 2ml VIAL (1mg/ml) ONE (15:28)
[2024-09-16] MEDS: HEPARIN SODIUM (PORCINE) 5000 UNITS/ML 1ML VIAL ONE (16:03)
--- NOTE | 2024-09-16 16:26 | DVHOP2 ---
Operative Report - 2 Report Details Date: 09/16/24 Preop Diagnosis: CAD Postop Diagnosis: Normal coronaries. Normal left ventriculogram Surgeon: Juana Burr MD Anesthesiologist: Conscious sedation Anesthesia: Mac, Local Consent: The patient was informed of the risks and benefits of the procedure. These include but are not limited to complications of anesthesia, postoperative infection, incomplete relief of symptoms, recurrence of symptoms, damage to blood vessels, nerves and tendons, deep venous thrombosis, pulmonary embolism and possible need for repeat surgery in the future. Complications: No complications Estimated Blood Loss: 2 cc Findings: Normal coronaries normal ejection fraction Indications for Surgery: Abnormal stress test. Chest pain. Name of Procedure Performed Bilateral cine coronary angiography. Ventriculography. Procedure Details Procedure Details: Prior local anesthesia with 2% lidocaine to the right wrist and full informed consent obtained, the patient was prepped and draped in usual fashion followed by placement of a six Ethiopian sheath into the right radial artery. A Devon catheter was used for ventriculography and cannulation of both right and left coronary ostia without complications. Hemodynamics: Aortic blood pressure was 110/70. End-diastolic pressure was five. There was no gradient across the aortic valve on pullback. Coronary anatomy: The RCA is a large dominant vessel it is normal in its proximal mid and distal segments. PDA and posterolateral branches are normal. Left main is large and normal. Left anterior descending coronary artery is large and normal. The diagonals are free of significant disease. The circumflex is a large vessel it is normal in its proximal mid and distal segments. PDA and posterolateral branches are normal. Ventriculography in the MURO projection shows an EF of 60% Impression: Normal left ventricular end-diastolic pressure at rest. Normal ejection fraction. No significant CAD. Normal coronaries. Recommendations: Medical therapy is warranted continue risk factor modification. Condition Good Disposition Still a Patient Date of Service: September 16, 2024 Billing Provider: JUANA BURR Sr., MD Cardiology Common Codes: 92622-UVMYMTH INP/OBS CARE (High) Cardiology Procedure Codes: 70433-FGQO HEART CATH W/INTRA INJ JUANA BURR Sr., MD September 16, 2024 16:26
[2024-09-16] MEDS ORDERED: LOSA-534 PO (20:35)
--- NOTE | 2024-09-16 20:58 | DVHDS ---
DATE OF DISCHARGE: 09/16/2024 ATTENDING PHYSICIAN: Dr. Tim Arceo CHIEF COMPLAINT ON ADMISSION: Bradycardia. HISTORY OF PRESENT ILLNESS: A 43-year-old male, [facility] inmate, seen in Cardiac Clinic on day of admission for uncontrolled hypertension but was also found to be bradycardic with a rate in the 40s. He was admitted for further workup and management. ADMITTING DIAGNOSES: * Bradycardia. * Hypertension. HOSPITAL COURSE: He was admitted to [facility] in stable condition. He was started on a regular diet. Given Lovenox for DVT prophylaxis. He was also started on valsartan and spironolactone for hypertension and his troponins were negative. EKG other than sinus bradycardia was unremarkable. A 2D echo EF of 40% to 45% with some global hypokinesis, moderate pulmonic insufficiency, mild to moderate tricuspid regurgitation, normal right ventricular function. The patient underwent nuclear stress test which showed decreased perfusion throughout the anterior wall. Then the patient was taken to cardiac lab, underwent coronary angiography and was found to have normal coronaries. All findings were conveyed to the patient. Recommendations were for lifestyle modifications mainly diet. The patient normally works out 5 days a week and also plays basketball regularly. He is now being discharged back to the care of the [facility] authorities in good and stable condition. DISCHARGE DIAGNOSES: * Bradycardia. * Hypertension. DISCHARGE MEDICATIONS: Amlodipine should be discontinued and the patient should be started on losartan 50 mg p.o. daily for the hypertension. CONDITION ON DISCHARGE: Stable. He is instructed to followup with [facility] within a week. MD JAIRO Rosales TID: [id number] RECEIPT: [id number]
== END 2024-09-16 22:44 | DRG 287 ==
LOC: XYW 10:59 → TELE-WESTW 14:56 → EEVIPCON 14:56 → TELE-WESTW 16:39 → TELE-EAST 09-14 19:32
PROVIDERS: ADMIT Internal Medicine; ATTEND Internal Medicine
PROC: 4A023N7 Measurement of Cardiac Sampling and Pressure, Left Heart, Percutaneous Approach (ICD-10-PCS; principal; 2024-09-16)
PROC: B211YZZ Fluoroscopy of Multiple Coronary Arteries using Other Contrast (ICD-10-PCS; 2024-09-16)
PROC: B215YZZ Fluoroscopy of Left Heart using Other Contrast (ICD-10-PCS; 2024-09-16)
DX: R07.89 Other chest pain (principal); I50.22 Chronic systolic (congestive) heart failure; R00.1 Bradycardia, unspecified; E78.5 Hyperlipidemia, unspecified; F12.90 Cannabis use, unspecified, uncomplicated; I11.0 Hypertensive heart disease with heart failure; E11.9 Type 2 diabetes mellitus without complications; I36.1 Nonrheumatic tricuspid (valve) insufficiency; Z82.69 Family history of other diseases of the musculoskeletal system and connective tissue; Z82.49 Family history of ischemic heart disease and other diseases of the circulatory system; Z87.891 Personal history of nicotine dependence
CPT/HCPCS: 36415; 71045; 78452; 80048; 80053; 80061; 81001; 83036; 83735; 84443; 84484; 85025; 85610; 85730; 86850; 86900; 86901; 87081; 93005; 93017; 93306; 93458; 99152; G0378; J2250; Q9967